=== PATIENT | male | born 1970 | race Caucasian/White ===

== ENCOUNTER 2017-04-28 15:42 | Emergency (ER) | payer BC ==
[~2017-04-28] VITALS: Ht 188 cm; Wt 131.0 kg
[~2017-04-28 15:42] MED LIST: ASPI81TA28 PO; LEVO125T4 PO; LPT40 PO; NAPR-1169 PO; SERT1TAB88 PO
[2017-04-28 15:45] VITALS: TEMP 36.5; Ht 188 cm; Wt 131.0 kg
[2017-04-28] MEDS ORDERED: LEVO100T7 PO (16:03)
[2017-04-28] MEDS ORDERED: ZLF/50 PO (16:03)
[2017-04-28] MEDS ORDERED: LPT/20 PO (16:03)
[2017-04-28] MEDS ORDERED: IBUP-1050 PO (16:04)
[2017-04-28] MEDS ORDERED: XYLOCAINE 1%/SOD BICARB 20 ML VIAL INFIL ONE (16:45)
--- NOTE | 2017-04-28 17:28 | EMERGENCY ROOM VISIT NOTE ---
ED Visit Note First contact with patient: 16:06 CHIEF COMPLAINT: Neck pain HISTORY OF PRESENT ILLNESS: This 46-year-old male patient presents to the emergency department complaining of pain in the neck on the right side that started 2 days ago. Patient states he woke up with some pain in the right side of his neck, he thought he had slept on it wrong. Pain is persistently worse, and today he is having intermittent sharp stabbing pains in the right side of his neck with any attempts to move his head. The patient rates the pain as sharp, stabbing and 10/10. The patient has taken Aleve and ibuprofen for the pain minimal relief. The patient does have a history of previous neck problems. The patient does not have pain of the arms and shoulders. The patient denies numbness and tingling. The patient denies chest pain or shortness of breath. There was no head injury and no loss of consciousness. The patient denies headache, blurred vision, abdominal pain, nausea, or vomiting. The patient denies change in personality. REVIEW OF SYSTEMS: A 10 system review of systems was completed with positives and pertinent negatives listed in the HPI. ALLERGIES: Reviewed in chart MEDICATIONS: Reviewed in chart PMH: Hypothyroidism, hyperlipidemia, depression SOCIAL HISTORY: Lives at home. Current every day smoker, denies alcohol and recreational drug use. PHYSICAL EXAM: VITALS: Vitals are noted on the nurse's note and reviewed by myself. Vital signs stable. GENERAL: Pleasant and cooperative, in no acute distress, but does appear to be quite uncomfortable and in pain. Non-diaphoretic, well- developed well-nourished. SKIN: Capillary reflex less than 2 seconds. HEENT: Normocephalic. PERRLA. EOMI. Nares patent. Mucous membranes moist. Neck is supple without nuchal rigidity. Cervical spine is not tender to palpation. The patient pointed tenderness of the paraspinal muscles of the right neck, with visible spasm. There is no lymphadenopathy. MUSCULOSKELETAL: The patient has full range of motion of the bilateral arms. Strength 5/5 of the bilateral upper extremities. The patient has tenderness with any attempts of motion of the neck, especially extension and turning to the right. NEURO: Patient was alert and oriented to person place and time. Normal sensation to light and sharp touch. No focal neurologic deficits. EMERGENCY DEPARTMENT COURSE: I examined the patient. Differential diagnosis includes muscle spasm, muscle strain/strain, torticollis, less likely vertebral fracture, subluxation, disc herniation given lack of trauma. I do not suspect meningitis. I do not feel any imaging is warranted at this time. Patient has findings consistent with an acute torticollis on exam, with palpable and visible muscle spasms. A point of maximal tenderness was palpable along the right paraspinous muscles of the posterior neck. I discussed options for treatment with the patient, he prefers not to be given any type of sedating medication, and reports anaphylactic shock related to receiving Toradol in the past. I discussed risks and benefits of performing trigger point injections for pain relief, patient verbalized understanding and provided verbal consent for the procedure. After the site of maximum tenderness was located, the area was cleansed with chlorhexidine scrub. A 27-gauge 1/2 inch needle was injected into the trigger point, with continuous back traction on the syringe, approximately 0.5 mL of 1% buffered lidocaine was injected into the trigger point, with an additional 1.5 mL of 1% lidocaine injected in the adjacent areas circumferentially. The lidocaine was then massaged into the area with almost immediate improvement in patient's pain. He is now able to fully range his neck without significant pain. Patient was provided with a prescription for Flexeril which he will take at home as needed. He was also encouraged to follow closely with his PCP, he verbalized understanding. Patient was discharged home in stable condition and ambulatory. Problem List Medical Problems: (1) Hypercholesteremia Status: Chronic (2) Hypothyroid Status: Chronic Current/Historical Medications Scheduled Aspirin (Aspirin Ec), 81 MG PO DAILY Atorvastatin (Atorvastatin Calcium), 20 MG PO DAILY Cyclobenzaprine Hcl (Flexeril), 10 MG PO TID Levothyroxine Sodium (Levothyroxine Sodium), 100 MCG PO DAILY Sertraline HCl (Sertraline HCl), 50 MG PO DAILY Scheduled PRN Ibuprofen (Advil), 400-600 MG PO Q6H PRN for Pain Allergies Coded Allergies: Ketorolac Tromethamine (Verified Allergy, Unknown, AIRWAY EDEMA, 03/01/14) Penicillins (Verified Allergy, Unknown, HIVES, 03/01/14) Vital Signs Date Time Temp Pulse Resp B/P (MAP) Pulse Ox O2 Delivery O2 Flow Rate FiO2 04/28/17 18:22 74 20 134/74 99 Room Air 04/28/17 15:45 36.5 63 18 171/91 96 Room Air Medications Administered Medications (Trade) Dose Ordered Sig/Cl Route Start Time Stop Time Status Last Admin Dose Admin Cyclobenzaprine HCl (FLEXERIL 10MG Home Pack) 1 homepack UD ONCE PO 04/28/17 18:00 04/28/17 18:01 DC 04/28/17 18:22 1 HOMEPACK Departure Information Impression Primary Impression: Acute torticollis Dispostion Home / Self-Care Condition GOOD Prescriptions Cyclobenzaprine Hcl (FLEXERIL) 10 Mg Tab 10 MG PO TID for 2 Days, #6 TAB Prov: Carol Rodríguez, LOSS PREVENTION SUPERVISOR 04/28/17 Referrals Hussein Abel M.D.([facility]) (PCP) Patient Instructions My [facility], [place] Additional Instructions You have been treated in the emergency department for your neck pain. Apply moist heat to the affected area often for the next few days to help with comfort and relieve pain. May continue to take ibuprofen 600 mg every 6-8 hours as needed for the pain. You may take the Flexeril every 8 hours as needed for muscle spasms. This medication may make you drowsy, do not drive or drink alcohol while you are taking it. Follow-up with your PCP this week if her symptoms have not improved in the next few days. Please return to the emergency department for worsening symptoms, including severe worsening pain that is not managed with medications, numbness or tingling in your arms, difficulty breathing or swallowing, severe headache, or any other concerns.
[2017-04-28] MEDS ORDERED: CYCL10TA6 PO (17:56)
[2017-04-28] MEDS ORDERED: FLEXERIL HOME PACK 10 MG VIAL PO ONE (18:00)
[2017-04-28 18:22] VITALS: BP 134/74; PULSE 74; O2SAT 99
--- NOTE | 2017-05-07 07:11 | EDITING REQUIRED CODING QUERY ---
CODING QUERY Marcos STERILE TECH, To promote full compliance with coding requirements relating to patient care, provider participation is requested in all cases of water sander uncertainty. Please assist us with the question(s) below: Coding Question(s): Please indicate the number of muscles injected during trigger point injection procedure. Physician's Response(s): One muscle, the right trapezius. Thank you Hussein Ryder Principal Diagnosis: "_that condition established after study, to be chiefly responsible for occasioning the admission of the patient to the hospital for care." Co-Existing Principal Diagnosis: "_when two or more diagnoses equally meet the criteria for principal diagnosis as determined by the circumstances of admission, diagnostic work up, and/or therapy provided, and the Alphabetic Index, Tabular List, or another coding guideline does not provide sequencing direction, any one of the diagnoses may be sequenced first." "When the physician has documented what appears to be a current diagnosis in the body of the record, but has not included the diagnosis in the final diagnostic statement, the physician should be asked whether the diagnosis should be added." (Source [facility] 2 QTR90. p3-4)
== END 2017-04-28 18:27 | disposition home or self-care (01) ==
LOC: C.EDB 15:43 → C.EDD 18:27
DX: M43.6 Torticollis (principal); E78.00 Pure hypercholesterolemia, unspecified; E78.5 Hyperlipidemia, unspecified; E03.9 Hypothyroidism, unspecified; F32.9 Major depressive disorder, single episode, unspecified; F17.200 Nicotine dependence, unspecified, uncomplicated; Z79.82 Long term (current) use of aspirin; Z79.899 Other long term (current) drug therapy